=== PATIENT | female | born 1995 | race Caucasian/White ===

== ENCOUNTER 2016-12-19 15:28 | Outpatient (CLI) | payer MEDICAID ==
[~2016-12-19] VITALS: Ht 156.2 cm; Wt 84.9 kg
[~2016-12-19 15:28] MED LIST: PRENAT PO
[2016-12-19 15:41] VITALS: Ht 156.2 cm; Wt 84.9 kg
[2016-12-19 15:42] VITALS: BP 108/63; PULSE 99; RESP 17
[2016-12-19 15:56] LABS: URINE BLOOD (Dip) POC Trace-intact (NEGATIVE)
--- NOTE | 2016-12-19 16:27 | QN ---
Documentation Comment co of spotting no ucx vss exam wnl os closed ua neg ap 32 weeks false labor fu with ob in 1-2 days; NANETTE PAN MD Dec 19, 2016 16:27
--- NOTE | 2016-12-19 16:40 | TRIAGE ---
OB Triage Datetime Report Generated by CPN: 12/19/2016 16:39 Datetime: 12/19/2016 16:00 Labor Evaluation Frequency: 0 Monitor Mode: External Pattern: Normal: <= 5 Contractions in 10 Minutes Resting Tone [place]: Relaxed Heart Rate FHR Baseline Rate: 135 Monitor Mode: External US FHR Baseline Changes: No Baseline Change Variability: Moderate 6-25 bpm Accelerations: 15X15 Decelerations: None Category: Category I Pain Assessment Pain Scale: 3 Pain Presence: Intermittent Pain Type: Cramping Pain Location: Abdomen Pain Relief Measures: Comfort Measures Pain Assessment Comments: DENIES ANY CONTRACTIONS OR BLEEDING SINCE SHE HAS BEEN HERE Datetime: 12/19/2016 15:48 Vaginal Exam Dilatation (cms): 0.0 Effacement (%): 30 Station: -3 Exam By: TORIN Vaginal Bleeding: None Cervix, Consistency: Moderate Cervix, Position: Posterior Datetime: 12/19/2016 15:36 Pain Assessment Pain Scale: 3 Pain Presence: Intermittent Pain Type: Cramping Pain Location: Abdomen Pain Goal: 5 Pain Relief Measures: Comfort Measures Datetime: 12/19/2016 15:35 Assessment Type: Triage Maternal Assessment Level of Consciousness: Fully Conscious DTR's/Clonus: DTRs 2+; No Clonus Headache: Denies Blurred Vision: No Respiratory Effort: Unlabored; Regular Rhythm Breath Sounds, Left: Clear and Equal Breath Sounds, Right: Clear and Equal Nausea/Vomiting: Denies RUQ Epigastric Pain: Denies Lower Extremities Edema: None Degree: None Upper Extremities Edema: None Degree: None Facial Edema: None Fall Risk Assessment History of Falling: (0) No Secondary Diagnosis: (0) No Ambulatory Aid: (0) Bedrest/Nurse Assist IV Therapy: (0) No Gait: (0) Normal/Bedrest/Immobile Mental Status: (0) Oriented to Own Ability Fall Score: 0 Fall Risk Score Definition: No Risk: No action required Datetime: 12/19/2016 15:32 Time of Arrival: 12/19/2016 15:24 EGA: 33.1 Arrived By: Wheelchair Arrived From: Emergency Dept Chief Complaint: PT PRESENTS TO TRIAGE COMPLAINING OF IRREGULAR CONTRACTIONS AND SPOTTING SINCE 12 00 Movement: Present Contractions: Irregular Rupture of Membranes: Denies Vaginal Bleeding: None Vaginal Discharge: Present Recent Sexual Intercouse: Denies Abdominal Trauma: Not Applicable Patient Complaints: Contractions Time Provider Notified: 12/19/2016 15:45 Provider Notified: [facility] Initial Plan: EFM/U/S Datetime: 09/27/2016 15:42 Fall Score: 0 Fall Risk Score Definition: No Risk: No action required Datetime: 09/27/2016 15:40 EGA: 21.2
== END 2016-12-19 16:38 | disposition home or self-care (01) ==
LOC: OBT 15:28 → L-D 15:29 → OBT 16:38
PROVIDERS: ATTEND Obstetrics & Gynecology
DX: O47.03 False labor before 37 completed weeks of gestation, third trimester (principal); O26.853 Spotting complicating pregnancy, third trimester; Z3A.32 32 weeks gestation of pregnancy
CPT/HCPCS: 81003; Z7500; G0463

== ENCOUNTER 2017-02-09 07:28 | Inpatient (IN) | payer MEDICAID ==
[~2017-02-09] VITALS: Ht 154.9 cm; Wt 90.1 kg
[2017-02-09 07:37] VITALS: Ht 154.9 cm; Wt 90.1 kg
[2017-02-09 07:38] VITALS: BP 148/72; PULSE 121; RESP 19
--- NOTE | 2017-02-09 08:07 | TRIAGE ---
OB Triage Datetime Report Generated by CPN: 02/09/2017 08:07 Datetime: 02/09/2017 07:36 Assessment Type: Triage Maternal Assessment Level of Consciousness: Fully Conscious DTR's/Clonus: DTRs 2+; No Clonus Headache: Denies Blurred Vision: No Respiratory Effort: Unlabored; Regular Rhythm; Equal Expansion Breath Sounds, Left: Clear and Equal Breath Sounds, Right: Clear and Equal Nausea/Vomiting: Denies RUQ Epigastric Pain: Denies Lower Extremities Edema: None Degree: None Upper Extremities Edema: None Degree: None Facial Edema: None Fall Risk Assessment History of Falling: (0) No Secondary Diagnosis: (0) No Ambulatory Aid: (0) Bedrest/Nurse Assist IV Therapy: (0) No Gait: (0) Normal/Bedrest/Immobile Mental Status: (0) Oriented to Own Ability Fall Score: 0 Fall Risk Score Definition: No Risk: No action required Datetime: 02/09/2017 07:35 Stage of : OB Triage Maternal Assessment Level of Consciousness: Fully Conscious DTR's/Clonus: DTRs 2+; No Clonus Headache: Denies Blurred Vision: No Respiratory Effort: Unlabored; Regular Rhythm; Equal Expansion Breath Sounds, Left: Clear and Equal Breath Sounds, Right: Clear and Equal Nausea/Vomiting: Denies RUQ Epigastric Pain: Denies Lower Extremities Edema: None Degree: None Upper Extremities Edema: None Degree: None Facial Edema: None Temperature Route: Axillary Fall Risk Assessment History of Falling: (0) No Secondary Diagnosis: (0) No Ambulatory Aid: (0) Bedrest/Nurse Assist IV Therapy: (0) No Gait: (0) Normal/Bedrest/Immobile Mental Status: (0) Oriented to Own Ability Fall Score: 0 Fall Risk Score Definition: No Risk: No action required Datetime: 02/09/2017 07:22 Time of Arrival: 02/09/2017 07:44 EGA: 40.4 Arrived By: Ambulatory Arrived From: Home Chief Complaint: PT CAME IN FOR POSTDATES NST, BPP, AND EFW DENIES ANY COMPLICATIONS AT THIS TIME Movement: Present Contractions: Denies/Absent Rupture of Membranes: Denies Vaginal Discharge: Denies Recent Sexual Intercouse: Denies Abdominal Trauma: Not Applicable Additional Patient Complaints: NONE Time Provider Notified: 02/09/2017 07:44 Provider Notified: [facility] Initial Plan: NST, BPP AND EFW Datetime: 12/19/2016 15:35 Fall Score: 0 Fall Risk Score Definition: No Risk: No action required Datetime: 12/19/2016 15:32 EGA: 33.1 Datetime: 09/27/2016 15:42 Fall Score: 0 Fall Risk Score Definition: No Risk: No action required Datetime: 09/27/2016 15:40 EGA: 21.2
--- NOTE | 2017-02-09 08:34 | RADRPT ---
PROCEDURE: OB ultrasound for biophysical profile CLINICAL INDICATION: Post dates. TECHNIQUE: Multiple sonographic images of the pelvis were obtained. Transabdominal view of the gr avid uterus are available for review. The images were reviewed on a PACS workstation. COMPARISON: OB ultrasound from earlier the same date. FINDINGS: breathing movement = 2/2 tone = 2/2 motion = 2/2 Quantitative amniotic fluid volume = 2/2 ANGELA = 13.7 cm Single live intrauterine in cephalic position with cardiac activity at 148 beats per minute. There is a anterior placenta without previa. IMPRESSION: 1. Single living intrauterine gestation in cephalic position. 2. Biophysical profile = 8/8. 3. ANGELA = 13.7 cm. RPTAT: [facility] Physician Farhan Date Time Electronically viewed and signed by Physician Farhan on 02/09/2017 08:33 /
--- NOTE | 2017-02-09 08:36 | RADRPT ---
PROCEDURE: US OB. CLINICAL INDICATION: Post dates. TECHNIQUE: Multiple sonographic images of the pelvis were obtained. Transabdominal imaging only w as performed. The images were reviewed on a PACS workstation. COMPARISON: None available. FINDINGS: There is a single viable intrauterine gestation. Cardiac activity is present with a heart rate of 1 48 bpm. There is a cephalic presentation. Measurements were made in order to determine age. The results are as follows: BPD = 9.39 cm HC = 33.63 cm AC = 35.51 cm FL = 7.33 cm Estimated gestational age of approximately 38 weeks 3 days. The estimated date of delivery is 02/20/2017. The EFW = 3584 g, at the 38.9 percentile. The placenta is anterior, grade 1/2. There is no evidence for an abruption or placenta previa. IMPRESSION: 1. Single viable intrauterine gestation of approximately 38 weeks 3 days. 2. The estimated date of delivery is 02/20/2017. RPTAT: GG .Brendan Ford MD, MD Date Time Electronically viewed and signed by .Brendan Ford MD, MD on 02/09/2017 08:36 .P/
[2017-02-09] MEDS: LACTATED RINGER'S 1,000 ML IV SCH ×3 (09:29→15:57)
[2017-02-09] MEDS ORDERED: METHYLERGONOVINE 0.2 MG INJ IM PRN (09:30)
[2017-02-09] MEDS ORDERED: CARBOPROST 250 MCG INJ IM PRN (09:30)
[2017-02-09] MEDS ORDERED: OXYTOCIN 30 UNITS/LR 500 ML IV SCH ×2 (09:30)
[2017-02-09] MEDS ORDERED: MISOPROSTOL 200 MCG TAB PR PRN (09:30)
[2017-02-09] MEDS ORDERED: LIDOCAINE 1% (MPF) 30 ML INJ INJ PRN (09:30)
[2017-02-09] MEDS ORDERED: IBUPROFEN 600 MG TAB PO PRN (09:30)
[2017-02-09] MEDS ORDERED: OXYTOCIN 30 UNITS/LR 500 ML IV PRN (09:30)
[2017-02-09 09:41] LABS: ADD SCAN DIFF NO
[2017-02-09 09:49] LABS: BASOPHILS % 0.2 % (0.0-2.0); EOSINOPHILS # 0.1 10^3/ul (0.0-0.5); EOSINOPHILS % 1.3 % (0.0-7.0); HEMATOCRIT 32.5 % (37.0-47.0); LYMPHOCYTES # 1.6 10^3/ul (0.8-2.9); MEAN CORPUSCULAR HEMOGLOBIN 25.9 pg (29.0-33.0); MEAN CORPUSCULAR HGB CONC 30.8 g/dl (32.0-37.0); MEAN CORPUSCULAR VOLUME 84.2 fl (82.0-101.0); MEAN PLATELET VOLUME 11.2 fl (7.4-10.4); MONOCYTE # 0.6 10^3/ul (0.3-0.9); MONOCYTES % 7.7 % (0.0-11.0); NEUTROPHIL # 5.9 10^3/ul (1.6-7.5); NEUTROPHILS % 70.7 % (39.0-77.0); PLATELET COUNT 246 10^3/UL (140-415); RED BLOOD COUNT 3.86 10^6/ul (4.20-5.40); RED CELL DISTRIBUTION WIDTH 14.3 % (11.5-14.5); WHITE BLOOD COUNT 8.3 10^3/ul (4.8-10.8)
[2017-02-09 09:55] LABS: INR 0.91; PROTIME 12.2 Sec (12.2-14.2)
[2017-02-09 09:56] LABS: PARTIAL THROMBOPLASTIN TIME 25.8 Sec (25.0-35.0)
[2017-02-09] MEDS ORDERED: DINOPROSTONE 10 MG VAG SUPP VAG ONE ×2 (10:00→23:15)
[2017-02-09] MEDS ORDERED: LACTATED RINGER'S 1,000 ML IV PRN (12:00)
[2017-02-09] MEDS ORDERED: FENTAnyl 50 MCG/ML VIAL IV ONE (20:00)
[2017-02-10] MEDS ORDERED: DINOPROSTONE 10 MG VAG SUPP VAG ONE
[2017-02-10] MEDS: LACTATED RINGER'S 1,000 ML IV SCH ×3 (00:04→12:15)
[2017-02-10] MEDS: FENTAnyl 50 MCG/ML VIAL IV PRN ×2 (00:06→18:00)
[2017-02-10] MEDS ORDERED: MISOPROSTOL 25 MCG CAPSULE PO PRN (00:30)
[2017-02-10] MEDS ORDERED: FENTAnyl 2MCG/ML-ROPIV 0.2% 100 ML ONE (03:10)
[2017-02-10] MEDS ORDERED: OXYTOCIN 30 UNITS/LR 500 ML IV SCH (08:00)
[2017-02-10] MEDS ORDERED: KETOROLAC 30 MG INJ IV PRN (08:30)
[2017-02-10] MEDS ORDERED: NALOXONE (0.4 MG/ML) INJ IV PRN (08:30)
[2017-02-10] MEDS ORDERED: HYDROmorphONE 1 MG/ML SYG IV PRN ×2 (08:30)
[2017-02-10] MEDS ORDERED: ONDANSETRON 4 MG INJ IV PRN (08:30)
[2017-02-10] MEDS ORDERED: DIPHENHYDRAMINE 50 MG INJ IV PRN (08:30)
[2017-02-10] MEDS: FENTAnyl 2MCG/ML-ROPIV 0.2% 100 ML BAG EPI SCH ×2 (09:15→16:01)
--- NOTE | 2017-02-10 18:28 | LDN ---
Date/Time of Note Date/Time of Note DATE: 02/10/17 TIME: 18:23 Delivery Summary February 16, 2070 This patient is a 21 years old 1 para 0 with EDC of 01/31/2017 she was admitted in the hospital yesterday with contraction she made slow progress in labor to complete dilatation under epidural anesthesia and delivered a 7 lbs. 8 oz. male baby with score of 8 and 1 minute 9 at 5 minutes estimated loss was about 350 cc twice daily second-degree laceration which was repaired Current Medications Medications (Trade) Dose Ordered Sig/Verónica Route PRN Reason Start Time Stop Time Status Last Admin Dose Admin Lactated Ringer's (Lr) 1,000 ml @ 125 mls/hr Q8H IV 02/09/17 09:14 02/10/17 12:15 Lidocaine 30 ml 30 ml ONCE PRN INJ EPISIOTOMY/TEARING 02/09/17 09:30 Oxytocin/Lactated Ringer's 500 ml @ 125 mls/hr ONCE -MAY REPEAT X1 IV 02/09/17 09:30 02/10/17 18:09 Oxytocin/Lactated Ringer's 500 ml @ 125 mls/hr ONCE IV 02/09/17 09:30 Ibuprofen 600 mg 600 mg ONCE PRN PO Mild Pain (Pain Score 1-3) 02/09/17 09:30 Lactated Ringer's 1,000 ml @ 2,000 mls/hr Q30M PRN IV PRE-EPIDURAL BOLUS 02/09/17 12:00 02/10/17 02:45 Oxytocin/Lactated Ringer's 500 ml @ 0 mls/hr ONCE PRN IV For Hemorrhage Management 02/09/17 09:30 Methylergonovine Maleate (Methergine) 0.2 mg ONCE PRN IM VAGINAL BLEEDING 02/09/17 09:30 Carboprost Tromethamine (Hemabate) 250 mcg ONCE PRN IM VAGINAL BLEEDING 02/09/17 09:30 Misoprostol (Cytotec) 1,000 mcg ONCE PRN OR VAGINAL BLEEDING 02/09/17 09:30 Dinoprostone (Cervidil Vaginal Supp) 10 mg ONCE ONCE VAG 02/09/17 10:00 02/09/17 10:01 DC 02/09/17 09:49 Fentanyl (Sublimaze) 25 mcg ONCE ONCE IV 02/09/17 20:00 02/09/17 20:13 DC 02/09/17 20:23 Dinoprostone (Cervidil Vaginal Supp) 10 mg ONCE ONCE VAG 02/09/17 23:15 02/09/17 23:15 DC Dinoprostone (Cervidil Vaginal Supp) 10 mg ONCE ONCE VAG 02/10/17 00:00 02/10/17 00:17 DC Fentanyl (Sublimaze) 50 mcg Q3H PRN IV PAIN 02/09/17 23:45 02/10/17 18:00 Misoprostol 50 mcg 50 mcg Q4 PRN PO CERVICAL RIPENING 02/10/17 00:30 Fentanyl/ Ropivacaine 100 ml @ ud STK-MED ONCE .ROUTE 02/10/17 03:10 02/10/17 03:11 DC Oxytocin/Lactated Ringer's 500 ml @ 0 mls/hr Q0M IV 02/10/17 08:00 02/10/17 08:11 Naloxone HCl (Narcan) 0.1 mg Q2M PRN IV FOR RESP RATE 8 OR LESS 02/10/17 08:30 02/11/17 08:29 Ketorolac Tromethamine (Toradol) 30 mg Q6H PRN IV PAIN 02/10/17 08:30 02/11/17 08:29 Diphenhydramine HCl (Benadryl) 25 mg Q6H PRN IV ITCHING 02/10/17 08:30 02/11/17 08:29 Ondansetron HCl (Zofran Inj) 4 mg Q6H PRN IV NAUSEA AND/OR VOMITING 02/10/17 08:30 02/11/17 08:29 Fentanyl/ Ropivacaine 100 ml EPIDURAL INFUSION EPI 02/10/17 08:30 02/10/17 16:01 Hydromorphone HCl (Dilaudid) 0.2 mg Q3H PRN IV PAIN LEVEL 1-5 02/10/17 08:30 02/11/17 08:29 Hydromorphone HCl (Dilaudid) 0.4 mg Q3H PRN IV PAIN LEVEL 6-10 02/10/17 08:30 02/11/17 08:29 Placenta Delivered: Spontaneously Meconium: none Episiotomy: No Perineal laceration: 2 Anesthesia type: Epidural Estimated blood loss: 350 Sponge & Needle done & correct: Yes All needle counts correct: Yes Any foreign bodies felt in the: No Problems: Delivery Information Sex Infant Sex: male Apgars 1 Minute: 8 5 Minute: 9 Suctioning Nose & mouth suctioned at suri: Yes Umbilical Cord Umbilical cord with: 3 Vessels Cord presentations: no nuchal cord Nuchal cord present X: 1 Cord Blood was obtained: Yes Mother & Baby Disposition Disposition Mom & Baby to Maternity; Good: Yes Mom transferred to: Med/Surg ADRIANO MCWILLIAMS MD Feb 10, 2017 18:28
[2017-02-10] MEDS: OXYTOCIN 30 UNITS/LR 500 ML IV SCH ×2 (19:47→22:56)
[2017-02-10] MEDS ORDERED: ZOLPIDEM 5 MG TAB PO PRN (20:00)
[2017-02-10] MEDS ORDERED: WITCH HAZEL/GLYCERIN PAD PR PRN (20:00)
[2017-02-10] MEDS ORDERED: BENZOCAINE 20% 56 ML SPRAY TOP PRN (20:00)
[2017-02-10] MEDS ORDERED: DIPHENHYDRAMINE 25 MG CAP PO PRN (20:00)
[2017-02-10 20:45] VITALS: BP 127/73; PULSE 108; RESP 20
[2017-02-10 21:11] VITALS: BP 122/71; PULSE 100; RESP 19
[2017-02-10] MEDS: SENNA/DOCUSATE NA (8.6MG/50MG) TAB PO SCH (21:44)
[2017-02-10] MEDS: LANOLIN 7 GM TUBE TOP PRN (21:46)
[2017-02-10] MEDS: IBUPROFEN 600 MG TAB PO SCH (21:47)
[2017-02-11] VITALS: BP 112/58; PULSE 90; RESP 19
[2017-02-11 04:00] VITALS: BP 108/53; PULSE 96; RESP 19
[2017-02-11] MEDS: IBUPROFEN 600 MG TAB PO SCH ×4 (05:03→23:42)
[2017-02-11 08:15] VITALS: BP 114/56; PULSE 98; RESP 18
[2017-02-11] MEDS: SENNA/DOCUSATE NA (8.6MG/50MG) TAB PO SCH ×2 (08:33→21:23)
[2017-02-11] MEDS: LACTATED RINGER'S 1,000 ML IV SCH (09:14)
--- NOTE | 2017-02-11 11:57 | PN ---
Date/Time of Note Date/Time of Note DATE: 02/11/17 TIME: 11:55 OB Subjective Subjective Subjective Patient without complaints. OB Objective Objective Objective AFVSS Gen: NAD Abd: FF OB Assessment/Plan Other Assessment: PPD1 Other plan: Continue routine care. ELENA BRITTON Feb 11, 2017 11:57
[2017-02-11 14:06] LABS: ADD SCAN DIFF NO
[2017-02-11 14:08] LABS: BASOPHILS % 0.2 % (0.0-2.0); EOSINOPHILS # 0.1 10^3/ul (0.0-0.5); EOSINOPHILS % 0.7 % (0.0-7.0); HEMATOCRIT 24.3 % (37.0-47.0); HEMOGLOBIN 7.7 g/dl (12.0-16.0); LYMPHOCYTES # 1.8 10^3/ul (0.8-2.9); LYMPHOCYTES % 13.3 % (15.0-51.0); MEAN CORPUSCULAR HEMOGLOBIN 27.1 pg (29.0-33.0); MEAN CORPUSCULAR HGB CONC 31.7 g/dl (32.0-37.0); MEAN CORPUSCULAR VOLUME 85.6 fl (82.0-101.0); MEAN PLATELET VOLUME 10.2 fl (7.4-10.4); MONOCYTE # 1.1 10^3/ul (0.3-0.9); MONOCYTES % 7.9 % (0.0-11.0); NEUTROPHIL # 10.4 10^3/ul (1.6-7.5); NEUTROPHILS % 77.2 % (39.0-77.0); PLATELET COUNT 201 10^3/UL (140-415); RED BLOOD COUNT 2.84 10^6/ul (4.20-5.40); RED CELL DISTRIBUTION WIDTH 14.4 % (11.5-14.5); WHITE BLOOD COUNT 13.5 10^3/ul (4.8-10.8)
[2017-02-11] MEDS ORDERED: HYDROCORTISONE 25 MG SUPP PR PRN (14:30)
[2017-02-11] MEDS: LANOLIN 7 GM TUBE TOP PRN (16:00)
[2017-02-11 16:21] VITALS: BP 97/57; PULSE 91; RESP 16
[2017-02-11 20:20] VITALS: BP 114/58; PULSE 99; RESP 20
[2017-02-11] MEDS: HYDROCORTISONE 2.5% 30 GM RECT CR PR SCH (21:24)
[2017-02-12 04:15] VITALS: BP 103/50; PULSE 91; RESP 18
[2017-02-12] MEDS: IBUPROFEN 600 MG TAB PO SCH ×2 (05:23→13:51)
[2017-02-12 09:00] VITALS: BP 108/55; PULSE 84; RESP 18
[2017-02-12] MEDS: HYDROCORTISONE 2.5% 30 GM RECT CR PR SCH (09:00)
--- NOTE | 2017-02-12 10:15 | DS ---
Date/Time of Note Date/Time of Note DATE: 02/12/17 TIME: 10:15 Obstetrical Discharge Record Final Diagnosis Final Diagnosis: Term delivered Other Final Diagnosis day #2 Patient stable and doing well Patient instructed to continue with taking vitamins and iron for the low hemoglobin DC home today Follow up with Dr. Lorenz in 2 and 6 weeks Vaginal Delivery Obstetrical Delivery: Spontaneous Condition on Discharge Physical Assessment Voiding: Yes Breast: Soft, non-tender Fundus: Firm Patient Condition: Good DEX MULLEN MD Feb 12, 2017 10:15
--- NOTE | 2017-02-12 10:15 | PN ---
Date/Time of Note Date/Time of Note DATE: 02/12/17 TIME: 10:12 OB Subjective Subjective Subjective Status post day #2 OB Objective Objective Objective Patient stable and doing well She has no complaints Afebrile, VSS HEENT: WNL Heart: Rhythm Normal Lungs: Clear Abdomen: WNL (Uterus firm) OB Assessment/Plan Other Assessment: day #2 Patient stable and doing well Other plan: DC home today Follow up with Dr. Lorenz in 2 and 6 weeks DEX MULLEN MD Feb 12, 2017 10:14
[2017-02-12] MEDS: SENNA/DOCUSATE NA (8.6MG/50MG) TAB PO SCH (11:21)
[2017-02-12 16:00] VITALS: BP 119/70; PULSE 80; RESP 18
== END 2017-02-12 18:05 | disposition home or self-care (01) | DRG 775 ==
LOC: OBT 07:28 → L-D 07:29 → OBT 08:17 → L-D 08:20 → PP1 02-10 20:50
PROVIDERS: ADMIT Obstetrics & Gynecology; ATTEND Obstetrics & Gynecology
PROC: 10E0XZZ Delivery of Products of Conception, External Approach (ICD-10-PCS; principal; 2017-02-10)
PROC: 0KQM0ZZ Repair Perineum Muscle, Open Approach (ICD-10-PCS; 2017-02-10)
DX: O48.0 Post-term pregnancy (principal); O70.1 Second degree perineal laceration during delivery; Z3A.40 40 weeks gestation of pregnancy; Z37.0 Single live birth
CPT/HCPCS: 62319; 76815; 76818; 85025; 85610; 85730; 86592; 86900; 86901; 87340; G0463; J2590; J3010; J7120

== ENCOUNTER 2017-02-17 17:31 | Emergency (ER) | payer MEDICAID ==
[~2017-02-17] VITALS: Wt 81.0 kg
[2017-02-17] MEDS ORDERED: CEPH-443 PO (19:50)
--- NOTE | 2017-02-17 19:54 | ERD ---
ER Documentation Chief Complaint Date/Time DATE: 02/17/17 TIME: 19:51 Chief Complaint BILATERAL BREAST PAIN/ LUMPS IN BREASTS/ BREAST FEEDING X 7 DAYS HPI Patient is a 22-year-old female who presents to the ED with bilateral breast pain and "lumps" since yesterday. She states that she developed a lump in her right breast yesterday and then noticed the same presentation on her left breast. She states that it is painful. Denies swelling or redness. Denies bleeding from her nipples. She is currently breast-feeding and has a of 7 days. She also states that she has had a fever today. Denies headache or dizziness. Denies abdominal pain, nausea, vomiting or diarrhea. Denies urinary symptoms. No other complaints. ROS All systems reviewed and are negative except as per history of present illness. Medications Home Meds Active Scripts Cephalexin* (Keflex*) 500 Mg Capsule, 500 MG PO QID for 5 Days, CAP Prov:NOAH WHITE PA-C 02/17/17 Discontinued Reported Medications Multivit/Min/Fol Ac/Iron/Pren* ( S*) 1 Tab Tab, 1 TAB PO DAILY, TAB 09/27/16 Allergies Allergies: Coded Allergies: morphine (Verified Allergy, Intermediate, rash, 02/09/17) shrimp (Verified Allergy, Intermediate, SOB, 02/09/17) PMhx/Soc Medical and Surgical Hx: pt denies Medical Hx, pt denies Surgical Hx History of Surgery: No Anesthesia Reaction: No Hx Neurological Disorder: No Hx Respiratory Disorders: No Hx Cardiac Disorders: No Hx Psychiatric Problems: No Hx Miscellaneous Medical Probl: No Hx Alcohol Use: No Hx Substance Use: No Hx Tobacco Use: No FmHx Family History: No coronary disease, No diabetes, No other Physical Exam Vitals Vital Signs Date Time Temp Pulse Resp B/P Pulse Ox O2 Delivery O2 Flow Rate FiO2 02/17/17 20:46 99.6 99 18 118/68 99 Room Air 02/17/17 17:52 101.1 107 20 125/68 100 Physical Exam GENERAL: Well-developed, well-nourished female. Appears in no acute distress. HEAD: Normocephalic, atraumatic. EYES: Pupils are equally reactive bilaterally. EOMs grossly intact. No conjunctival erythema. ENT: Moist mucous membranes. No uvula deviation. No kissing tonsils. No exudates. NECK: Supple. No lymphadenopathy or thyromegaly. No meningismus. negative kernig. negative brudinski. LUNG: Clear to auscultation bilaterally. No rhonchi, wheezing, rales or coarse breath sounds. HEART: Regular rate and rhythm. No murmurs, rubs or gallops. BREAST: Firm bilateral breast. Draining milk from bilateral nipples. Lumps felt on right and left breast. No redness or swelling. No erythema. Extremities: Equal pulses bilaterally. No peripheral clubbing, cyanosis or edema. No unilateral leg swelling. NEUROLOGIC: Alert and oriented. Moving all four extremities. 5/5 strength in all extremities. Normal speech. Steady gait. SKIN: Normal color. Warm and dry. No rashes or lesions. Capillary refill < 2 seconds Results 24 hrs Laboratory Tests Test 02/17/17 20:00 Bedside Urine pH (LAB) 5.5 Bedside Urine Protein (LAB) 2+ Bedside Urine Glucose (UA) Negative Bedside Urine Ketones (LAB) Negative Bedside Urine Blood 3+ Bedside Urine Nitrite (LAB) Negative Bedside Urine Leukocyte Esterase (L 3+ Current Medications Medications (Trade) Dose Ordered Sig/Verónica Route PRN Reason Start Time Stop Time Status Last Admin Dose Admin Acetaminophen (Tylenol Tab) 650 mg ONCE ONCE PO 02/17/17 20:00 02/17/17 20:01 DC 02/17/17 19:55 Procedures/MDM ER COURSE: I kept the patient and/or family informed of laboratory and diagnostic imaging results throughout the emergency room course. LABORATORY STUDIES Urine dip shows 3+ leukocytes with no nitrites, 3+ hemoglobin. Urine negative. Tylenol 650 mg. Tolerated well with no adverse reaction. MEDICAL DECISION MAKING: This is a 22-year-old for who presents with bilateral breast pain 1 day. Vital signs were reviewed. Patient has a temperature of 101.1 in the ED.. Patient is not hypoxic. I consulted with Dr. tirado regarding this patient who advised on patient's treatment in the ED. Patient's presentation is what is likely mastitis. Patient slightly elevated pulse is likely related to her fever. Low suspicion for necrotizing fasciitis, SJS, toxic epidermal necrolysis, Kawasaki, erythema multiforme, gangrene, scarlet fever, meningococcemia, sepsis, anaphylaxis, sepsis, deep space infection, or foreign body. I advised patient to continue breast-feeding. Her urine dip shows 3+ leukocytes and patient has what seems to be cystitis. Low suspicion for pyelonephritis, nephrolithiasis, septic stone or obstructive stone. Low suspicion for ovarian torsion, PID, tuboovarian abscess, ectopic , bowel obstruction, pyelonephritis, appendicitis, cervicitis, septic , molar , HELLP syndrome, preeclampsia, eclampsia, placenta previa, placenta abruptia. Patient's vitals were reassessed and her temperature is down trending and patient is not afebrile. Her pulse has decreased to 109 and is likely related to pain. Low suspicion for ACS, PE, AAA, dissection, DVT. I have low suspicion for DVT as patient does not have shortness of breath or leg pain. She does not have recent travel or recent surgeries. She does not have leg pain or swelling. DISCHARGE: At this time, patient is stable for discharge and outpatient management with no new complaints during the ER course. Patient was sent home with Keflex for mastitis and cystitis and information regarding mastitis.. Patient will be discharged home with instructions to recheck for new or worsening symptoms such as fever, nausea, weakness, LOC and to follow up with primary care in the next 1 -2 days. Patient was advised to return to the ER for any new or worsening symptoms. Plan was discussed and patient and/or family understands and agrees. Home instructions were given. Departure Diagnosis: Primary Impression: Mastitis Additional Impression: Cystitis Condition: Stable Patient Instructions: Mastitis Additional Instructions: Call your primary care doctor TOMORROW for an appointment during the next 1-2 days.See the doctor sooner or return here if your condition worsens before your appointment time. NOAH WHITE PA-C Feb 17, 2017 19:54
[2017-02-17 19:59] LABS: URINE BLOOD (Dip) POC 3+ (NEGATIVE)
[2017-02-17] MEDS ORDERED: ACETAMINOPHEN 325 MG TAB PO ONE (20:00)
[2017-02-17 20:46] VITALS: BP 118/68; PULSE 99; RESP 18; TEMP 99.6
== END 2017-02-17 20:46 | disposition home or self-care (01) ==
LOC: FTE 17:31
DX: N61.0 Mastitis without abscess (principal); N30.90 Cystitis, unspecified without hematuria
CPT/HCPCS: 81003; Z7502; Z7610; 99282

== ENCOUNTER 2018-08-18 09:34 | Emergency (ER) | END 2018-08-18 10:43 | disposition home or self-care (01) ==